=== PATIENT | female | born 1990 | race Caucasian/White ===

== ENCOUNTER 2017-09-16 08:15 | Day surgery (SDC) | payer OTHER ==
[~2017-09-16 08:15] MED LIST: CEFAZOLIN 1 GM INJ; LABETALOL HCL 20MG INJ; LIDOCAINE 2% (SDV) 5 ML INJ; ONDANSETRON 4 MG INJ
[2017-09-16] MEDS ORDERED: BUPIVACAINE LIPOSOME/PF 266 MG/20 ML VIAL INFIL (09:00)
[2017-09-16] MEDS ORDERED: FENTAnyl 50 MCG/ML VIAL ×2 (09:43→11:25)
[2017-09-16] MEDS ORDERED: MIDAZOLAM 1 MG/ML 2 ML INJ (09:44)
[2017-09-16] MEDS ORDERED: DEXAMETHASONE 4 MG/ML 1 ML INJ (09:45)
[2017-09-16] MEDS ORDERED: METOCLOPRAMIDE 10 MG INJ (09:46)
[2017-09-16] MEDS ORDERED: PROPOFOL 20 ML (09:49)
[2017-09-16] MEDS ORDERED: ROCURONIUM 50 MG INJ (09:49)
[2017-09-16] MEDS ORDERED: ACETAMINOPHEN 1000MG/100ML IV 100 ML (10:22)
[2017-09-16] MEDS ORDERED: SUGAMMADEX SODIUM 200 MG/2 ML VIAL IV (10:34)
[2017-09-16] MEDS ORDERED: morphine 2 MG INJ IV (11:30)
[2017-09-16] MEDS ORDERED: HYDROCODONE/APAP (10/325) TAB PO (11:30)
[2017-09-16] MEDS ORDERED: ONDANSETRON 4 MG INJ IV (11:30)
[2017-09-16] MEDS: BUPIVACAINE 0.5% 30 ML VIAL INJ (11:57)
[2017-09-16] MEDS: POLYMYXIN/BACITRACIN 1L IRRIG (11:57)
[2017-09-16] MEDS: GENTAMICIN 80 MG INJ (11:57)
[2017-09-16] MEDS ORDERED: HYDROmorphONE (0.2 MG/ML) 10ML SYG IV ×2 (13:00)
[2017-09-16] MEDS ORDERED: DIPHENHYDRAMINE 50 MG INJ IV (13:00)
[2017-09-16] MEDS ORDERED: LORAZEPAM 2 MG INJ IV (13:00)
[2017-09-16] MEDS ORDERED: FENTAnyl 50 MCG/ML VIAL IV ×2 (13:00)
[2017-09-16] MEDS: MEPERIDINE 25 MG INJ IV (13:30)
[2017-09-16] MEDS ORDERED: BUPIVACAINE 0.5% (SDV) 30 ML INJ (15:17)
== END 2017-09-16 15:25 | disposition home or self-care (01) ==
LOC: SDS 08:15
DX: F64.8 Other gender identity disorders (principal)
CPT/HCPCS: 19325; 84703